=== PATIENT | female | born 1945 | race Caucasian/White ===

== ENCOUNTER 2018-01-15 06:10 | Day surgery (SDC) | payer OTHER ==
[~2018-01-15] VITALS: Ht 157.5 cm; Wt 78.7 kg
[~2018-01-15 06:10] MED LIST: CALMAGZIN; ERGO400; FISH1000; FLONASE ALLERG9.9 ML; GLUC500; LOVA40; MULT50L; NAPR220
== END 2018-01-15 08:25 | disposition home or self-care (01) ==
LOC: ORSCSDS 06:10
PROVIDERS: Orthopaedic Surgery
PROC: 01N50ZZ Release Median Nerve, Open Approach (ICD-10-PCS; principal; 2018-01-15 07:30)
DX: G56.01 Carpal tunnel syndrome, right upper limb (principal); J45.909 Unspecified asthma, uncomplicated; Z79.899 Other long term (current) drug therapy
CPT/HCPCS: J2250; J3010; J7120

== ENCOUNTER 2018-02-12 06:08 | Day surgery (SDC) | payer OTHER ==
[~2018-02-12] VITALS: Ht 167.6 cm; Wt 76.7 kg
== END 2018-02-12 08:22 | disposition home or self-care (01) ==
LOC: ORSCSDS 06:08
PROVIDERS: Orthopaedic Surgery
PROC: 01N50ZZ Release Median Nerve, Open Approach (ICD-10-PCS; principal; 2018-02-12 07:30)
DX: G56.02 Carpal tunnel syndrome, left upper limb (principal); J45.909 Unspecified asthma, uncomplicated; Z79.899 Other long term (current) drug therapy
CPT/HCPCS: J2250; J3010; J7120

== ENCOUNTER → 2018-07-12 | Outpatient (CLI) | payer OTHER | END | disposition home or self-care (01) | LOC: PLD 14:24 → LAB SHORT 14:24 | DX: L91.0 Hypertrophic scar (principal) | CPT/HCPCS: 88304 ==

== ENCOUNTER 2021-03-16 09:25 | Day surgery (SDC) | payer OTHER ==
[~2021-03-16] VITALS: Ht 167.6 cm; Wt 69.7 kg
--- NOTE | 2021-03-16 10:16 | NUR ---
03/16/21 1016 Adriane Lang POLYMYALGIA RHEUMATICA(AUTOIMMUNE) ARTHRITIS 2017
== END 2021-03-16 11:33 | disposition home or self-care (01) ==
LOC: ORSCSDS 09:25
PROVIDERS: Internal Medicine Gastroenterology
PROC: 0DBM8ZX Excision of Descending Colon, Via Natural or Artificial Opening Endoscopic, Diagnostic (ICD-10-PCS; principal; 2021-03-16 10:45)
PROC: 0DBK8ZX Excision of Ascending Colon, Via Natural or Artificial Opening Endoscopic, Diagnostic (ICD-10-PCS; principal; 2021-03-16 10:45)
PROC: 0DBL8ZX Excision of Transverse Colon, Via Natural or Artificial Opening Endoscopic, Diagnostic (ICD-10-PCS; principal; 2021-03-16 10:45)
DX: Z12.11 Encounter for screening for malignant neoplasm of colon (principal); Z86.010 Personal history of colon polyps; D12.2 Benign neoplasm of ascending colon; D12.3 Benign neoplasm of transverse colon; D12.4 Benign neoplasm of descending colon; K57.30 Diverticulosis of large intestine without perforation or abscess without bleeding; Z79.899 Other long term (current) drug therapy; J45.909 Unspecified asthma, uncomplicated
CPT/HCPCS: 88305; J2704; J7120

== ENCOUNTER → 2024-03-19 | Outpatient (CLI) | payer OTHER ==
[~2024-03-19] MED LIST changes: +AEREDS PO; +ASPI81CH PO; +Calcium Carbon500 MG PO; +FISH OIL PO; -LOVA40; +LOVA40 PO; +Metoprolol Succ25 MG PO; +ONE DAILY ESS400 MCG PO; +VITAMIN D310 MC4 PO; +Vitamin B-12100 MCG SL
[2024-03-19 17:54] LABS: Source, Urine Clean Catch
[2024-03-19 18:20] LABS: Calcium Oxalate Crystals Mod /hpf; Mucus Light (0-Heavy); Red Blood Cells, Urine 0-2 /hpf (0-2); Squamous Epithelial Cells Few /hpf (Few)
[2024-03-19 18:21] LABS: Bacteria Few /hpf
== END | disposition home or self-care (01) ==
LOC: LAB SHORT 15:30 → LAB 15:30
PROVIDERS: Family Medicine
DX: R30.0 Dysuria (principal)
CPT/HCPCS: 81015

== ENCOUNTER 2024-09-16 07:02 | Day surgery (SDC) | payer OTHER ==
[2024-09-16] VITALS (13 sets, daily range): BP systolic 116–140; BP diastolic 58–75
[~2024-09-16] VITALS: Ht 167.6 cm; Wt 75.0 kg
[~2024-09-16 07:02] MED LIST changes: +Acetaminophen 500 MG Tab PO SCH; +CARV3.125 PO; +CeFAZolin Sodium 2,000 MG in NS 100 ML IV SCH; +Chlorhexidine Mouth Care 15 ML UDC MT SCH; +Lactated Ringer's 1,000 ML IV SCH; +Ropivacaine 0.5% HCl/Pf 123.125 MG,EPINEPHrine HCL 0.25 MG,Ketorolac Tromethamine 15 MG... INFIL SCH; +Tranexamic Acid 100 ML IV SCH
[2024-09-16] MEDS ORDERED: propofoL 60 ML IV ONE (07:28)
[2024-09-16] MEDS ORDERED: Midazolam HCl 1MG / ML 2ML Vial ONE (08:37)
[2024-09-16] MEDS ORDERED: Phenylephrine HCl 100 MCG/ML-NS 10MLSYR (1MG/10ML) ONE (09:07)
[2024-09-16] MEDS ORDERED: ePHEDrine Sulfate 50 MG/ML 1ML Injection ONE (09:07)
[2024-09-16] MEDS ORDERED: Bisacodyl 10 MG Supp PR PRN (09:20)
[2024-09-16] MEDS ORDERED: Lactated Ringer's 1,000 ML IV SCH (09:25)
[2024-09-16] MEDS ORDERED: OxyCODONE HCL 5 MG TAB PO PRN ×2 (09:25→09:40)
[2024-09-16] MEDS ORDERED: Metoclopramide HCl 5MG / ML 2ML Vial IV PRN (09:25)
[2024-09-16] MEDS ORDERED: Phenylephrine HCl 10mg/ml 1 ml Vial ONE (09:25)
[2024-09-16] MEDS ORDERED: Magnesium Hydroxide Conc 10 ML UDC PO PRN (09:25)
[2024-09-16] MEDS ORDERED: Ondansetron HCl 2 MG / ML 2ML Vial IV PRN (09:25)
[2024-09-16] MEDS ORDERED: HYDROmorphone HCl/Pf 1MG SYR IV PRN (09:30)
[2024-09-16] MEDS ORDERED: FLU VACC TS2024-25(6MOS UP)/PF 45 MCG/0.5 ML SYRINGE IM SCH (09:30)
[2024-09-16] MEDS ORDERED: TraMADol HCl 50 MG Tab PO PRN (09:30)
[2024-09-16] MEDS ORDERED: DiphenhydrAMINE HCL 25 MG Cap PO PRN (09:30)
[2024-09-16] MEDS ORDERED: Promethazine HCl 25 MG Tab PO PRN (09:40)
--- NOTE | 2024-09-16 11:15 | NUR ---
1110: PT ARRIVES FROM PACU ALERT WITH NO COMPLAINTS. PT HAS BANDAGE TO R KNEE WITH POLAR PACK IN PLACE. ADEQUATE PAIN CONTROL AT THIS TIME.
[2024-09-16] MEDS ORDERED: Ketorolac Tromethamine 15mg Vial IV SCH (12:00)
--- NOTE | 2024-09-16 15:20 | NUR ---
PT TO D/C HOME AT THIS TIME. PT CLEARED BY PT. ADEQUATE PAIN CONTROL. 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 LORI FOOD AND DRINK AND VOIDED WELL. EDUCATION PROVIDED AND QUESTIONS ANSWERED. PT SENT HOME WITH EXTRA BANDAGES AND ESCORTED OUT VIA WC.
[2024-09-16] MEDS ORDERED: Acetaminophen 500 MG Tab PO SCH (16:00)
[2024-09-16] MEDS ORDERED: CeFAZolin Sodium 2,000 MG in NS 100 ML IV SCH (16:45)
[2024-09-16] MEDS ORDERED: Carvedilol 3.125 MG Tab PO SCH (17:00)
[2024-09-16] MEDS ORDERED: Docusate Sodium 100 MG Cap PO SCH (21:00)
[2024-09-17] MEDS ORDERED: Cholecalciferol 400 unit Tab PO SCH (09:00)
[2024-09-17] MEDS ORDERED: Aspirin 81 MG Chew PO SCH (09:00)
[2024-09-17] MEDS ORDERED: Calcium Carbonate 500 MG Tab Chew PO SCH (09:00)
[2024-09-17] MEDS ORDERED: Cyanocobalamin 100 MCG Tab PO SCH (09:00)
[2024-09-17] MEDS ORDERED: Atorvastatin 40 MG Tab PO SCH (09:00)
[2024-09-17] MEDS ORDERED: Multivitamins 1 Tab PO SCH (09:00)
== END 2024-09-16 15:20 | disposition home or self-care (01) ==
LOC: ORSCMMR 07:02 → ORD 08:15 → SURS 11:05 → ORSCMMR 15:20
PROVIDERS: Orthopaedic Surgery
PROC: 8E0Y0CZ Robotic Assisted Procedure of Lower Extremity, Open Approach (ICD-10-PCS; principal; 2024-09-16 08:15)
PROC: 0SRC0JA Replacement of Right Knee Joint with Synthetic Substitute, Uncemented, Open Approach (ICD-10-PCS; principal; 2024-09-16 08:15)
DX: M17.11 Unilateral primary osteoarthritis, right knee (principal); E78.5 Hyperlipidemia, unspecified; I10 Essential (primary) hypertension; Z79.899 Other long term (current) drug therapy; Z79.82 Long term (current) use of aspirin
CPT/HCPCS: 73560-RT; 97162; 97530; A9270; C1776; J0171; J0690; J0735; J1885; J2250; J2371; J2704; J2795; J7120

== ENCOUNTER → 2025-06-23 | Outpatient (CLI) | payer OTHER ==
[~2025-06-23] MED LIST changes: -Acetaminophen 500 MG Tab PO SCH; -CeFAZolin Sodium 2,000 MG in NS 100 ML IV SCH; -Chlorhexidine Mouth Care 15 ML UDC MT SCH; -Lactated Ringer's 1,000 ML IV SCH; -Ropivacaine 0.5% HCl/Pf 123.125 MG,EPINEPHrine HCL 0.25 MG,Ketorolac Tromethamine 15 MG... INFIL SCH; -Tranexamic Acid 100 ML IV SCH
== END | disposition home or self-care (01) ==
LOC: LAB 13:55 → LAB SHORT 13:55
DX: N39.0 Urinary tract infection, site not specified (principal)
CPT/HCPCS: 87086

== ENCOUNTER 2025-06-29 06:36 | Day surgery (SDC) | payer OTHER ==
[~2025-06-29] VITALS: Ht 167.6 cm; Wt 71.2 kg
[2025-06-29] MEDS ORDERED: OMEGA-3 + VITA200 ML (06:48)
[2025-06-29] MEDS ORDERED: PYRIDOXINE HCL (06:48)
[2025-06-29] MEDS ORDERED: PRESERVISION A1 EAC4 (06:49)
[2025-06-29] MEDS ORDERED: Ondansetron HCl 2 MG / ML 2ML Vial ONE (08:33)
[2025-06-29 09:13] VITALS: BP 120/71
== END 2025-06-29 08:50 | disposition home or self-care (01) ==
LOC: ORSCSDS 06:36
PROVIDERS: Specialist
PROC: 0DBL8ZX Excision of Transverse Colon, Via Natural or Artificial Opening Endoscopic, Diagnostic (ICD-10-PCS; principal; 2025-06-29 08:00)
DX: Z12.11 Encounter for screening for malignant neoplasm of colon (principal); D12.3 Benign neoplasm of transverse colon; K64.8 Other hemorrhoids; K57.30 Diverticulosis of large intestine without perforation or abscess without bleeding; Z86.0101 Personal history of adenomatous and serrated colon polyps; Z83.719 Family history of colon polyps, unspecified; Z79.82 Long term (current) use of aspirin; Z79.899 Other long term (current) drug therapy
CPT/HCPCS: 88305; J2405; J2704; J7120

== ENCOUNTER → 2025-07-17 | Outpatient (CLI) | payer OTHER ==
[~2025-07-17] MED LIST changes: +OMEGA-3 + VITA200 ML; +PRESERVISION A1 EAC4; +PYRIDOXINE HCL
== END ==
LOC: LAB 14:59 → LAB SHORT 14:59
DX: N39.0 Urinary tract infection, site not specified (principal); A49.9 Bacterial infection, unspecified
CPT/HCPCS: 87086

== ENCOUNTER 2025-08-06 07:29 | Day surgery (SDC) | payer OTHER ==
[~2025-08-06] VITALS: Ht 170.2 cm; Wt 74.6 kg
[~2025-08-06 07:29] MED LIST changes: +Balanced Salt Epinephrine Irrigation Solution 500 mL IR SCH; +Moxifloxacin HCL 0.5 MG/0.1 ML 0.4MLSYR LEFTEYE SCH; +Ondansetron 4 MG SoluTab MM PRN; +PHENYLEPHRINE\\TROPICAMIDE\\TETRACAINE OPHTHALMIC DILATING SOLN LEFTEYE PRN; +Povidone-Iodine 450 DROP/30 ML Solution LEFTEYE SCH; +Povidone-Iodine 450 DROP/30 ML Solution ONE; +Tetracaine HCl/Pf 0.5% Opth Soln 4 ml ONE; +Triamcinolone Inj Susp 40 MG / ML 1ML Vial INJ SCH; +Triamcinolone Inj Susp 40 MG / ML 1ML Vial ONE; +diazePAM 2 MG,diazePAM 5 MG PO SCH
--- NOTE | 2025-08-06 08:28 | NUR ---
08/06/25 0828 Johanna Goodman 0820: INITIAL ANXIETY 0/10 PER PATIENT REPORT. 0824: PO VALIUM GIVEN BY ODR.TCR (RN) PULSE OX ON FINGER, CALL LIGHT IN HAND 0825:TETRACAINE PER ORDERS 0826:PLEGET PER ORDERS
[2025-08-06] MEDS ORDERED: CALCIUM (08:31)
[2025-08-06] MEDS ORDERED: VITAMIN D350 MC3 PO (08:32)
[2025-08-06] MEDS ORDERED: AREDS (08:33)
[2025-08-06] MEDS ORDERED: MAGNESIUM OXID500 MG (08:34)
[2025-08-06] MEDS ORDERED: ZINC15 PO (08:34)
[2025-08-06] MEDS ORDERED: VITAMIN B12500 MCG PO (08:34)
--- NOTE | 2025-08-06 09:21 | NUR ---
08/06/25 0921 Yane Youssef HR:67 BP:136/65 SPO2:97% ON 10L BLOW BY O2
[2025-08-06 09:38] VITALS: BP 131/75
== END 2025-08-06 09:52 | disposition home or self-care (01) ==
LOC: ORSCSDS 07:29
PROVIDERS: Ophthalmology
PROC: 08RK3JZ Replacement of Left Lens with Synthetic Substitute, Percutaneous Approach (ICD-10-PCS; principal; 2025-08-06 09:00)
DX: H25.813 Combined forms of age-related cataract, bilateral (principal); I10 Essential (primary) hypertension; E03.9 Hypothyroidism, unspecified; K21.9 Gastro-esophageal reflux disease without esophagitis; Z79.899 Other long term (current) drug therapy
CPT/HCPCS: A9270; J3301; V2632

== ENCOUNTER 2025-08-20 08:46 | Day surgery (SDC) | payer OTHER ==
[~2025-08-20] VITALS: Ht 167.6 cm; Wt 73.9 kg
[~2025-08-20 08:46] MED LIST changes: +AREDS; +CALCIUM; +MAGNESIUM OXID500 MG; -Moxifloxacin HCL 0.5 MG/0.1 ML 0.4MLSYR LEFTEYE SCH; +Moxifloxacin HCL 0.5 MG/0.1 ML 0.4MLSYR RIGHTEYE SCH; -PHENYLEPHRINE\\TROPICAMIDE\\TETRACAINE OPHTHALMIC DILATING SOLN LEFTEYE PRN; +PHENYLEPHRINE\\TROPICAMIDE\\TETRACAINE OPHTHALMIC DILATING SOLN RIGHTEYE PRN; -Povidone-Iodine 450 DROP/30 ML Solution LEFTEYE SCH; +Povidone-Iodine 450 DROP/30 ML Solution RIGHTEYE SCH; +VITAMIN B12500 MCG PO; +VITAMIN D350 MC3 PO; +ZINC15 PO
--- NOTE | 2025-08-20 09:32 | NUR ---
SISTER HAD POSSIBLE ALLERGIC REACTION TO ANESTHESIA IN PAST, PT UNSURE
--- NOTE | 2025-08-20 10:06 | NUR ---
08/20/25 1006 Aure Valenzuela 1001 BP:118/70 HR:64 O2:96% RESP:16
[2025-08-20 10:42] VITALS: BP 121/69
== END 2025-08-20 10:29 | disposition home or self-care (01) ==
LOC: ORSCSDS 08:46
PROVIDERS: Ophthalmology
PROC: 08RJ3JZ Replacement of Right Lens with Synthetic Substitute, Percutaneous Approach (ICD-10-PCS; principal; 2025-08-20 10:30)
DX: H25.811 Combined forms of age-related cataract, right eye (principal); Z96.1 Presence of intraocular lens; Z79.82 Long term (current) use of aspirin; Z79.899 Other long term (current) drug therapy
CPT/HCPCS: A9270; J3301; V2632

== ENCOUNTER 2025-10-06 06:04 | Day surgery (SDC) | payer OTHER ==
[2025-10-06] VITALS (13 sets, daily range): BP systolic 104–142; BP diastolic 63–85
[~2025-10-06] VITALS: Ht 167.6 cm; Wt 75.2 kg
[~2025-10-06 06:04] MED LIST changes: +ATOR40TA PO; -Balanced Salt Epinephrine Irrigation Solution 500 mL IR SCH; -LOVA40 PO; -Moxifloxacin HCL 0.5 MG/0.1 ML 0.4MLSYR RIGHTEYE SCH; -Ondansetron 4 MG SoluTab MM PRN; -PHENYLEPHRINE\\TROPICAMIDE\\TETRACAINE OPHTHALMIC DILATING SOLN RIGHTEYE PRN; -PRESERVISION A1 EAC4; +PRESERVISION A1 EAC4 PO; -Povidone-Iodine 450 DROP/30 ML Solution ONE; -Povidone-Iodine 450 DROP/30 ML Solution RIGHTEYE SCH; -Tetracaine HCl/Pf 0.5% Opth Soln 4 ml ONE; -Triamcinolone Inj Susp 40 MG / ML 1ML Vial INJ SCH; -Triamcinolone Inj Susp 40 MG / ML 1ML Vial ONE; -diazePAM 2 MG,diazePAM 5 MG PO SCH
[2025-10-06] MEDS ORDERED: Tranexamic Acid 100 ML IV SCH (06:15)
[2025-10-06] MEDS ORDERED: Chlorhexidine Mouth Care 15 ML UDC MT SCH (06:15)
[2025-10-06] MEDS ORDERED: Ropivacaine 0.5% HCl/Pf 123.125 MG,EPINEPHrine HCL 0.25 MG,Ketorolac Tromethamine 15 MG... INFIL SCH (06:15)
[2025-10-06] MEDS ORDERED: CeFAZolin Sodium 2,000 MG in NS 100 ML IV SCH ×2 (06:15→16:00)
--- NOTE | 2025-10-06 06:36 | NUR ---
Ambulatory in Day Surgery History, Chart, Medications and Allergies reviewed before start of procedure. Pre-Op teaching done. Pt verbalizes understanding. Patient States Post-Procedure ride home has been arranged.
[2025-10-06] MEDS ORDERED: Ondansetron HCl 2 MG / ML 2ML Vial ONE (06:44)
[2025-10-06] MEDS ORDERED: Metoclopramide HCl 5MG / ML 2ML Vial ONE (06:44)
[2025-10-06] MEDS ORDERED: HYDROmorphone HCl/Pf 1MG SYR ONE (06:44)
[2025-10-06] MEDS ORDERED: Magnesium Sulfate 500 MG / ML 2ML Vial ONE (06:45)
[2025-10-06] MEDS ORDERED: Midazolam HCl 1MG / ML 2ML Vial ONE (06:54)
[2025-10-06] MEDS ORDERED: Morphine Sulfate 4 MG/1 ML Injection IV PRN (07:10)
[2025-10-06] MEDS ORDERED: Ondansetron HCl 2 MG / ML 2ML Vial IV PRN ×2 (07:10→09:30)
[2025-10-06] MEDS ORDERED: FentaNYL Citrate 50 MCG/ML 2 ML Injection IV PRN ×2 (07:10)
[2025-10-06] MEDS ORDERED: HYDROmorphone HCl/Pf 1MG SYR IV PRN ×2 (07:10→09:25)
[2025-10-06] MEDS ORDERED: Metoclopramide HCl 5MG / ML 2ML Vial IV PRN ×2 (07:10→09:30)
[2025-10-06] MEDS ORDERED: ePHEDrine Sulfate 50 MG/ML 1ML Injection ONE ×2 (08:06→08:41)
[2025-10-06] MEDS ORDERED: FLU VACC TS2025(65UP)/MF59C/PF 45 MCG/0.5 ML SYRINGE IM SCH (09:30)
[2025-10-06] MEDS ORDERED: Magnesium Hydroxide Conc 10 ML UDC PO PRN (09:30)
[2025-10-06] MEDS ORDERED: Prochlorperazine Edisylate 10 mg Vial IV PRN (09:35)
--- NOTE | 2025-10-06 10:04 | NUR ---
POST OP: ARRIVED TO ROOM VIA DENA WONG, DENIES ANY PAIN ABLE TO MOVE TOES, ORIENTED TO ROOM AND CALL LIGHT, POLAR PACK TO R HIP, R HIP DRESSING C/D/I, REPORT TO CHAO MCDONALD TO ASSUME CARE.
--- NOTE | 2025-10-06 10:26 | NUR ---
POST OP: PT ARRIVED TO UNIT AT ABOUT 1000. PT IS A/O, VSS. L HIP SURGICAL SITE WNL, SLIGHT BRUISING AT INCISION. PEDAL PULSE PALPABLE, WIGGLES TOES SLIGHTLY. PAIN 0/10. FAMILY AT BEDSIDE, CALL LIGHT IN REACH
[2025-10-06] MEDS ORDERED: ELIQUIS2.5 MG PO (10:29)
[2025-10-06] MEDS ORDERED: Ketorolac Tromethamine 15mg Vial IV SCH (12:00)
--- NOTE | 2025-10-06 18:20 | NUR ---
DISCHARGE: PT'S PAIN IS MANAGED. INCISION WNL AND SENSATION INTACT. PT ABLE TO WALK WITH FWW AND VOID IN COMMODE. DC INSTRUCTIONS GIVEN AND IV DC'D WNL, TIP INTACT.
== END 2025-10-06 18:50 | disposition home or self-care (01) ==
LOC: ORSCMMR 06:04 → ORD 07:30 → ORSCMMR 07:30 → SURS 09:59 → ORSCMMR 18:50
PROVIDERS: Orthopaedic Surgery
PROC: 0SRB0J9 Replacement of Left Hip Joint with Synthetic Substitute, Cemented, Open Approach (ICD-10-PCS; principal; 2025-10-06 07:30)
DX: M16.12 Unilateral primary osteoarthritis, left hip (principal); I10 Essential (primary) hypertension; E78.5 Hyperlipidemia, unspecified; Z79.82 Long term (current) use of aspirin; Z79.899 Other long term (current) drug therapy
CPT/HCPCS: 72170; A9270; C1713; C1776; J0166; J0690; J0735; J1171; J1885; J2250; J2405; J2704; J2765; J2795; J3475; J7120